=== PATIENT | female | born 1950 | race Caucasian/White ===

== ENCOUNTER 2019-11-14 05:09 | Day surgery (SDC) ==
--- NOTE | 2019-11-09 08:38 | EKG Report ---
Test Performed on : 11/09/2019 08:33:27 AM Test Reason : PAT Blood Pressure : / mmHG Vent. Rate : 069 BPM Atrial Rate : 069 BPM P-R Int : 172 ms QRS Dur : 090 ms QT Int : 404 ms P-R-T Axes : 010 -06 -04 degrees QTc Int : 432 ms Normal sinus rhythm. Septal infarct , age undetermined Abnormal ECG When compared with ECG of 06-MAY-2012 11:39, Septal infarct is now present T wave inversion now evident in Inferior leads Confirmed by Danuta Romano MD ([id number]) on 11/09/2019 1:30:15 PM
[2019-11-09 08:50] LABS: URINE SOURCE CLEAN CATCH
[2019-11-09 09:47] LABS: BASO# 0.03 X1000 (0.0-0.2); BASO% 0.5 % (0.0-0.8); EOS% 1.7 % (0.0-10.0); HEMATOCRIT 45.6 % (37.0-47.0); LYMPH# 1.96 X1000 (1.2-3.4); LYMPH% 32.5 % (20.5-51.1); MCH 28.4 PG (27-31); MCHC 32.9 g/dL (33-37); MCV 86.4 FL (81-99); MONO% 9.9 % (1.7-9.3); MPV 11.1 FL (7.4-10.4); NEUT# 3.35 X1000 (1.4-6.5); NEUT% 55.4 % (42.2-75.2); PLT 213 X1000 (130-400); RBC 5.28 XMIL (4.2-5.4); RDW 13.9 % (11.5-14.5); WBC 6.04 X1000 (4.8-10.8)
[2019-11-09 09:48] LABS: BILIRUBIN URINE NEGATIVE (NEGATIVE); BLOOD URINE NEGATIVE (NEGATIVE); COLOR YELLOW; GLUCOSE URINE NEGATIVE (NEGATIVE); KETONE URINE NEGATIVE (NEGATIVE); LEUKOCYTES URINE MODERATE (NEGATIVE); NITRITE URINE NEGATIVE (NEGATIVE); PH URINE 6.5; PROTEIN URINE NEGATIVE (NEGATIVE); SP GRAVITY URINE 1.015; TURBIDITY URINE CLEAR (CLEAR); UR EPITHELIAL CELLS <10 /HPF (<10); URINE BACTERIA NEGATIVE /HPF; URINE RBC <10 /HPF (<10); URINE WBC <10 /HPF (<10); UROBILINOGEN URINE NORMAL (NORMAL)
[2019-11-09 09:52] LABS: PROTIME 13.3 Seconds (11.0-16.0)
[2019-11-09 09:56] LABS: HEMOGLOBIN A1C 5.6 % (4.8-6.0)
[2019-11-09 10:14] LABS: AGAP 12; BUN 15 mg/dL (8-22); CALCIUM 9.5 mg/dL (8.8-10.2); CHLORIDE 100 mmol/L (98-107); COSMO 283; CREATININE 0.9 mg/dL (0.5-0.9); ESTIMATED GFR > 60; GLUCOSE 87 mg/dL (70-104); POTASSIUM 3.6 mmol/L (3.5-5.1); SODIUM 142 mmol/L (136-145); TCO2 30 mmol/L (25-35)
[2019-11-14] MEDS ORDERED: PEPCID ONE (05:38)
[2019-11-14] MEDS ORDERED: REGLAN ONE (05:38)
[2019-11-14] MEDS ORDERED: COLACE ONE (05:38)
[2019-11-14] MEDS ORDERED: LR 1,000 ML ONE (05:39)
[2019-11-14] MEDS ORDERED: KEFZOL 1 GM/D5W 2 GM/100 ML IVPB ONE (05:39)
[2019-11-14] MEDS ORDERED: LYRICA ONE (05:39)
[2019-11-14] MEDS ORDERED: CELEBREX ONE (05:39)
[2019-11-14] MEDS ORDERED: MARCAINE 0.25% PF ONE (06:30)
[2019-11-14] MEDS ORDERED: TORADOL ONE (06:30)
[2019-11-14] MEDS ORDERED: DURAMORPH ONE (06:30)
[2019-11-14] MEDS ORDERED: SODIUM CHLORIDE 0.9% ONE (06:31)
[2019-11-14] MEDS ORDERED: EXPAREL 1.3% ONE (06:31)
[2019-11-14] MEDS ORDERED: NEOSPORIN G.U. IRRIGANT ONE (06:31)
[2019-11-14] MEDS ORDERED: VANCOMYCIN ONE (06:31)
[2019-11-14] MEDS ORDERED: CYKLOKAPRON 1,000 MG/NS 1,000 MG/100 ML IVPB ONE ×2 (06:31→06:32)
[2019-11-14] MEDS ORDERED: DIPRIVAN 1% ONE ×2 (06:41→08:06)
[2019-11-14] MEDS ORDERED: XYLOCAINE-MPF 2% ONE (06:42)
[2019-11-14] MEDS ORDERED: FENTANYL ONE (06:59)
[2019-11-14] MEDS ORDERED: VERSED ONE (07:03)
[2019-11-14] MEDS ORDERED: DECADRON ONE ×2 (07:14)
[2019-11-14] MEDS ORDERED: ZOFRAN ONE (07:14)
[2019-11-14] MEDS ORDERED: OFIRMEV 1000 MG/ISOTONIC SOLN 1,000 MG/100 ML BOTTLE ONE (07:14)
[2019-11-14] MEDS ORDERED: XYLOCAINE 2% JELLY ONE (07:22)
[2019-11-14] MEDS ORDERED: EPHEDRINE ONE (07:52)
[2019-11-14 08:41] LABS: URINE SOURCE CATH
[2019-11-14 08:45] LABS: BILIRUBIN URINE NEGATIVE (NEGATIVE); BLOOD URINE NEGATIVE (NEGATIVE); COLOR STRAW; GLUCOSE URINE NEGATIVE (NEGATIVE); KETONE URINE NEGATIVE (NEGATIVE); LEUKOCYTES URINE NEGATIVE (NEGATIVE); NITRITE URINE NEGATIVE (NEGATIVE); PROTEIN URINE NEGATIVE (NEGATIVE); SP GRAVITY URINE 1.006; TURBIDITY URINE CLEAR (CLEAR); UROBILINOGEN URINE NORMAL (NORMAL)
[2019-11-14 08:47] LABS: UR EPITHELIAL CELLS <10 /HPF (<10); URINE BACTERIA NEGATIVE /HPF; URINE RBC <10 /HPF (<10); URINE WBC <10 /HPF (<10)
[2019-11-14] MEDS ORDERED: NS 1,000 ML ONE (09:05)
[2019-11-14] MEDS ORDERED: MILK OF MAGNESIA PO PRN (09:15)
[2019-11-14] MEDS ORDERED: MORPHINE IV PRN ×3 (09:15)
[2019-11-14] MEDS ORDERED: ZOFRAN ODT PO PRN (09:15)
[2019-11-14] MEDS ORDERED: OXY IR PO PRN (09:15)
[2019-11-14] MEDS ORDERED: ZOFRAN IV PRN (09:15)
[2019-11-14] MEDS ORDERED: NS 1,000 ML IV SCH (09:15)
--- NOTE | 2019-11-14 09:52 | OPERATIVE NOTE ---
PROCEDURE DATE: 11/14/2019 PREOPERATIVE DIAGNOSIS: Left knee degenerative joint disease. POSTOPERATIVE DIAGNOSIS: Left knee degenerative joint disease. PROCEDURE PERFORMED: Left total knee arthroplasty using a [facility] size 5 femoral component, a size 6 tibial base plate, an 11 mm articular insert, and a 32 mm patellar component. ANESTHESIA: Spinal. SURGEON: Rashad Ragsdale M.D. CANDLE WICKER: DENIZ Mendoza, who was present throughout the case. His assistance was necessary for successful completion of the case. BLOOD LOSS: Minimal. TOURNIQUET TIME: Approximately 1 hour. DESCRIPTION OF PROCEDURE: The patient was brought to the operative suite and placed in the supine position. After successful administration of spinal anesthesia, a well-padded tourniquet was placed on the left proximal thigh, and the left lower extremity was prepped and draped in the usual sterile fashion. The leg was exsanguinated. Tourniquet insufflated to 350 torr. A longitudinal incision was made, beginning at the superior pole of the patella and extending distally to the tibial tuberosity. A medial arthrotomy was made, and the medial capsule was elevated off the medial tibial plateau. The ACL, PCL, medial meniscus, and lateral meniscus were excised. A drill was entered into the center of the distal femur. Intramedullary guide was placed. Distal cutting block was pinned into place. Distal cut was made with oscillating saw. The marginal osteophytes were removed with a rongeur. Attention was directed to the tibia. A drill was entered into the center of the tibia. Intramedullary guide was placed. The line was checked with drop milo, referencing off the anterior cortex of the tibia, and taking 4 mm off the low side of the tibia, which in this case was laterally. The articular surface of the tibial plateau was removed with an oscillating saw after pinning the cutting block. The marginal osteophytes were again removed with a rongeur, being certain all of the medial and lateral meniscus were excised. The extension gap was checked and balanced at 11 mm. Once setting rotation was found, the flexion guide was in internal rotation, which was unacceptable. Therefore, we used the standard guide set to 3 degrees of external rotation, sized the femur to a size 5. A size 5 cutting block was pinned into place. The anterior cuts, chamfer cuts, and posterior condylar cuts were made with the oscillating saw. Marginal osteophytes were removed with the rongeur. A box cutting block was pinned into place. Box cut was made with box osteotome and oscillating saw. Posterior condylar osteophytes were removed with the curved osteotome and a rongeur. Attention was then directed to the tibia. The tibia was sized to a size 6. A size 6 guide was used for the fin punch using the drop milo for alignment. The tibial component, femoral component, and 11 mm articular insert were placed and taken through range of motion and found have excellent alignment, balancing, and range of motion. Attention was then directed to the patella, and 9 mm of the articular surface of the patella were removed with the oscillating saw. Patella sized to a size 32. A size 32 guide was used to drill peg holes. The lateral facet was chamfered 30 to 45 degrees. Patella trial was placed, taken through range of motion, found have excellent patella tracking. All trials were then removed. The knee was copiously irrigated and dried, being certain all bone debris was removed. The tibial component, femoral component, and patellar component were cemented into place, excess cement being removed with a [place]. Once the cement had hardened, excess cement was again removed with an osteotome. The knee was again copiously irrigated and dried, being certain all bone and cement debris were removed. The trial articular insert was removed. The knee was copiously infiltrated with Exparel, including the posterior capsule, anterior capsule, anterior musculature, and subcutaneous tissue. The tourniquet was deflated, and then hemostasis was obtained with electrocautery. The definitive 11 mm articular insert was placed, and the knee was again taken through range of motion, again found to have excellent alignment, balancing, range of motion, full extension, and patellar tracking. The knee was again copiously irrigated with normal saline containing irrigant and Vashe irrigation. The medial arthrotomy was closed with 0 V-Loc. The skin edge was approximated with 2-0 Vicryl, the skin was closed with Prineo, and a sterile dressing was applied. The patient tolerated the procedure well without complication. At the end of the procedure, all counts were correct x2. The patient was transferred to the recovery room in stable condition. cc: MD SONIA Kapoor
[2019-11-14] MEDS: KEFZOL 2 GM/D5W 2 GM/50 ML IVPB IV SCH ×2 (16:48→23:47)
[2019-11-14] MEDS: TYLENOL PO SCH ×2 (16:49→23:45)
[2019-11-14] MEDS: ULTRAM PO SCH ×2 (16:49→23:45)
[2019-11-14] MEDS ORDERED: FLONASE NAS PRN (16:58)
[2019-11-14] MEDS ORDERED: COLACE PO SCH (21:00)
[2019-11-14] MEDS ORDERED: GLUCOSAMINE PO SCH (21:00)
[2019-11-14] MEDS ORDERED: ZOCOR PO SCH (21:00)
[2019-11-14] MEDS: CALTRATE 600 + D PO SCH (23:45)
[2019-11-14] MEDS: COREG PO SCH (23:45)
[2019-11-14] MEDS: COLACE PO SCH (23:46)
[2019-11-14] MEDS: LYRICA PO SCH (23:46)
[2019-11-14] MEDS: PERIDEX MT SCH (23:46)
[2019-11-15] MEDS: OXY IR PO PRN ×2 (04:07→09:48)
[2019-11-15 06:26] LABS: HEMATOCRIT 33.7 % (37.0-47.0); HEMOGLOBIN 11.4 g/dL (12.0-16.0)
[2019-11-15 06:46] LABS: AGAP 10; BUN 15 mg/dL (8-22); CALCIUM 8.5 mg/dL (8.8-10.2); CHLORIDE 100 mmol/L (98-107); COSMO 272; CREATININE 0.8 mg/dL (0.5-0.9); ESTIMATED GFR > 60; GLUCOSE 115 mg/dL (70-104); POTASSIUM 3.5 mmol/L (3.5-5.1); SODIUM 135 mmol/L (136-145); TCO2 25 mmol/L (25-35)
[2019-11-15] MEDS: TYLENOL PO SCH ×2 (07:35→07:49)
[2019-11-15] MEDS: ULTRAM PO SCH (07:49)
[2019-11-15] MEDS: PATIENT'S OWN MED BOTH EYES SCH ×2 (08:24→09:49)
[2019-11-15 08:25] VITALS: BP 115/58
[2019-11-15] MEDS ORDERED: MOBIC PO SCH (09:00)
[2019-11-15] MEDS ORDERED: DECADRON IV ONE (09:00)
[2019-11-15] MEDS ORDERED: NORVASC PO SCH (09:00)
[2019-11-15] MEDS ORDERED: THERA M PLUS PO SCH (09:00)
[2019-11-15] MEDS ORDERED: HYDROCHLOROTHIAZIDE PO SCH (09:00)
[2019-11-15] MEDS ORDERED: PEPCID PO SCH (09:00)
[2019-11-15] MEDS ORDERED: ASPIRIN PO SCH (09:00)
[2019-11-15] MEDS: COLACE PO SCH (09:46)
[2019-11-15] MEDS: COREG PO SCH (09:46)
[2019-11-15] MEDS: LYRICA PO SCH (09:46)
[2019-11-15] MEDS: CALTRATE 600 + D PO SCH (09:47)
[2019-11-15] MEDS: PERIDEX MT SCH (09:48)
--- NOTE | 2019-11-16 04:17 | DISCHARGE SUMMARY ---
ADMISSION DATE: 11/14/2019 DISCHARGE DATE: 11/15/2019 DISCHARGE DIAGNOSIS: Is left knee degenerative joint disease status post left total knee arthroplasty. DISCHARGE MEDICATIONS: See discharge medication list. DISPOSITION: The patient discharged home with home health physical therapy. Instructed to return for any signs of infection, deep venous thrombosis. Instructed return to see Dr. Ragsdale next . HOSPITAL COURSE: On day of admission, patient underwent a left total knee arthroplasty. Her postoperative course was unremarkable. At discharge she is afebrile, tolerating regular diet, ambulating well with physical therapy. Her wound is clean, dry, intact without sign of infection. I have discharged her home in stable condition with instructions to follow up as described above. cc: Rashad Ragsdale MD
[2019-11-16] MEDS ORDERED: PATIENT'S OWN MED VAG SCH (21:00)
== END 2019-11-15 10:14 | disposition home or self-care (01) ==
LOC: OR 05:09 → 4N 05:09 → OR 11-15 10:14
PROVIDERS: ATTEND Orthopaedic Surgery